=== PATIENT | male | born 1940 | race Caucasian/White ===

== ENCOUNTER 2017-05-14 08:00 | Outpatient (CLI) | payer MEDICARE, OTHER ==
[2017-05-15 12:39] LABS: HEMOGLOBIN A1C 0.47 g/dL
[2017-05-15 12:43] LABS: CHOL/HDL RATIO 3.2 (<5.0); CHOLESTEROL 165 mg/dL; HDL CHOLESTEROL 52 mg/dL; TRIGLYCERIDES 39 mg/dL
[2017-05-15 13:02] LABS: LDL CHOLESTEROL,DIRECT 103 mg/dL
== END 2017-05-14 23:59 | disposition home or self-care (01) ==
LOC: LAB.F 08:00
PROVIDERS: ATTEND Internal Medicine
DX: Z13.220 Encounter for screening for lipoid disorders (principal); R73.9 Hyperglycemia, unspecified
CPT/HCPCS: 36415; 80061; 83036

== ENCOUNTER 2018-09-28 13:26 | Outpatient (CLI) | payer MEDICARE, OTHER ==
[2018-09-28 19:08] LABS: BASOPHILS % (AUTO) 0.6 %; EOSINOPHILS # (AUTO) 0.1 10^3/uL (0.0-0.7); EOSINOPHILS % (AUTO) 1.9 %; HGB - HEMOGLOBIN 14.1 g/dL (14.0-18.0); LYMPHOCYTES # (AUTO) 0.7 10^3/uL (1.5-3.5); LYMPHOCYTES % (AUTO) 12.7 %; MEAN CORPUSCULAR HEMOGLOBIN 31.7 pg (27.0-31.0); MEAN CORPUSCULAR HGB CONC 33.1 g/dL (32.0-36.0); MEAN CORPUSCULAR VOLUME 95.9 fL (80.0-94.0); MONOCYTES # (AUTO) 0.5 10^3/uL (0.0-1.0); MONOCYTES % (AUTO) 8.9 %; NEUTROPHILS % (AUTO) 75.9 %; PLT - PLATELET COUNT 180 10^3/uL (130-450); RED BLOOD COUNT 4.46 10^6/uL (4.70-6.10); RED CELL DISTRIBUTION WIDTH 14.6 % (12.0-15.0); WHITE BLOOD COUNT 5.2 x10^3/uL (4.8-10.8)
== END 2018-09-28 13:27 | disposition home or self-care (01) ==
LOC: LAB.F 13:26
PROVIDERS: ATTEND Internal Medicine
DX: Z96.642 Presence of left artificial hip joint (principal); L03.116 Cellulitis of left lower limb
CPT/HCPCS: 36415; 85025; 85651; 86140

== ENCOUNTER 2018-12-09 21:51 | Outpatient (CLI) | payer MEDICARE, OTHER ==
--- NOTE | 2018-12-09 23:38 | Ultrasound Report ---
Reason: LOWER EXTREMITY EDEMA Procedure Date: 12/09/2018 Accession Number: [id number] / [id number] Procedure: US - Duplex Ext Veins Right CPT Code: FULL RESULT: EXAM: RIGHT LOWER EXTREMITY VENOUS ULTRASOUND EXAM DATE: 12/09/2018 11:10 PM. CLINICAL HISTORY: LOWER EXTREMITY EDEMA. COMPARISON: None. TECHNIQUE: Real-time sonographic vascular imaging was performed by the manager house through the lower extremity utilizing both color-flow and Doppler spectral analysis. Multiple bilingual sales representative static images were saved for review. FINDINGS: Common Femoral Vein (CFV): Normal. CFV-GSV Junction: Normal. Profunda Femoral Vein (PFV): Normal. Femoral Vein (FV) Prox: Normal. Femoral Vein (FV) Mid: Normal. Femoral Vein (FV) Dist: Normal. Popliteal Vein: There is occlusive thrombus. Posterior Tibial Veins: There is occlusive thrombus within the paired posterior tibial veins. Peroneal Veins: Not seen. Other: None. IMPRESSION: Study is positive for deep venous thrombosis within the right popliteal and posterior tibial veins. RADIA The call report notification system was initiated by Dr. Sebas Lopez at 11:36 PM on 12/09/2018. ADDENDUM: 12/09/18 23:51 The above call report findings were discussed with Dr Brito by Dr. Sebas Lopez at 11:51 PM on 12/09/2018.
== END 2018-12-09 21:52 | disposition home or self-care (01) ==
LOC: DI 21:51
PROVIDERS: ATTEND Registered Nurse
DX: I82.431 Acute embolism and thrombosis of right popliteal vein (principal); I82.441 Acute embolism and thrombosis of right tibial vein

== ENCOUNTER 2018-12-09 23:54 | Emergency (ER) | payer MEDICARE, OTHER ==
[2018-12-10 00:42] LABS: CALCIUM 8.8 mg/dL (8.5-10.3)
[2018-12-10 00:44] LABS: INR 1.1 (0.8-1.2); PT - PROTHROMBIN TIME 12.2 secs (9.9-12.6)
--- NOTE | 2018-12-10 00:47 | ED Physician Documentation ---
History of Present Illness - Stated complaint Stated Complaint: BLOOD CLOT IN LEG - Chief complaint Chief Complaint: Ext Problem - History obtained from History obtained from: Patient - History of Present Illness Timing: How many days ago (4-5) Pain level now: 1 Improved by: nothing Worsened by: no exacerbating factors - Additonal information Additional information: c/o 4-5 days of gradual onset, gradually progressive RLE swelling with mild painful discomfort. No h/o similar symptoms, denies trauma. US was ordered by PMD; this was performed tonight and revealed DVT (right popliteal and posterior tibial veins). PMD's office was contacted and on-call provider recommended patient check into ED Review of Systems Constitutional: denies: Fever Cardiac: reports: Reviewed and negative Respiratory: reports: Reviewed and negative Skin: denies: Rash Musculoskeletal: reports: Extremity pain, Extremity swelling PD PAST MEDICAL HISTORY - Past Medical History Past Medical History: No Cardiovascular: None Respiratory: None Endocrine/Autoimmune: None GI: Colon polyps : None HEENT: None Psych: None Musculoskeletal: None Derm: None - Past Surgical History Past Surgical History: Yes Ortho: Hip replacement, Other HEENT: Tonsil/Adenoidectomy - Present Medications Home Medications: Ambulatory Orders Medication Instructions Recorded Confirmed Multivitamin [Multi-Vitamin Daily] 1 tab PO DAILY 07/25/15 12/10/18 Enoxaparin [Lovenox] 90 mg SUBQ Q12H #14 syringe 12/10/18 Warfarin Sodium 5 mg PO DAILY #20 tablet 12/10/18 - Allergies Allergies/Adverse Reactions: Allergies Allergy/AdvReac Type Severity Reaction Status Date / Time No Known Drug Allergies Allergy Verified 12/10/18 00:02 - Social History Does the pt smoke?: No Smoking Status: Never smoker Does the pt drink ETOH?: Yes ETOH Use: Liquor Does the pt have substance abuse?: No - Immunizations Immunizations are current?: Yes PD ED PE NORMAL - Vitals Vital signs reviewed: Yes - General General: Alert and oriented X 3, No acute distress, Well developed/nourished - Cardiac Cardiac: RRR, No murmur - Respiratory Respiratory: No respiratory distress, Clear bilaterally - Derm Derm: Normal color, Warm and dry PD ED PE EXPANDED - Extremities Extremities: Swelling, Pedal edema R (distal to mid thigh (uniform/circumferential distal to the mid thigh)). No: Tenderness, Limited ROM Results - Vitals Vitals: Vital Signs - 24 hr 12/09/18 12/10/18 23:57 01:45 Temperature 37.1 C Heart Rate 100 78 Respiratory 20 18 Rate Blood Pressure 177/95 H 168/87 H O2 Saturation 98 99 Oxygen O2 Source Room air - Labs Labs: Laboratory Tests 12/10/18 12/10/18 00:25 00:25 PT 12.2 INR 1.1 APTT 26.6 Sodium 138 Potassium 3.4 L Chloride 103 Carbon Dioxide 28 Anion Gap 7.0 BUN 17 Creatinine 1.0 Estimated GFR (MDRD) 72 L Glucose 108 H Calcium 8.8 PD MEDICAL DECISION MAKING - ED course Complexity details: reviewed results, considered differential, d/w patient ED course: I discussed results of US and options for treatment with patient. He agrees with anticoagulation and we then reviewed risks/benefits of different anticoagulants (NOAC, warfarin). He opts for warfarin at this time (he had been on warfarin after hip surgery and thus is familiar with this medication). Given warfarin and lovenox in ED with rx for both. Instructed to contact PMD in the morning to arrange for close follow up. He understands he will need blood tests within the next few days to check his INR Departure - Departure Disposition: 01 Home, Self Care Clinical Impression: Deep vein thrombosis Qualifiers: DVT location: lower extremity Affected thrombotic vein of extremity: popliteal Chronicity: acute Laterality: right Qualified Code(s): I82.431 - Acute embolism and thrombosis of right popliteal vein Condition: Good Instructions: ED DVT, Lovenox, Warfarin Follow-Up: Remi Hagen MD [Primary Care Provider] - (Call in the morning to begin follow-up arrangements. You will need blood tests within the next few days to determine the dose of warfarin that is right for you. It takes approximately 2 days for the warfarin to affect these tests, and thus 5 mg is the standard starting dose. The enoxaparin injections will keep your blood thinned out until the warfarin is determined to be at the appropriate dose.) Prescriptions: Enoxaparin [Lovenox] 90 mg SUBQ Q12H #14 syringe Warfarin Sodium 5 mg PO DAILY #20 tablet Discharge Date/Time: 12/10/18 01:55
[2018-12-10 00:51] LABS: PARTIAL THROMBOPLASTIN TIME 26.6 secs (24.9-33.3)
[2018-12-10] MEDS ORDERED: ENOXAPARIN 100 MG/ML SYRINGE SUBQ STA (01:18)
[2018-12-10] MEDS ORDERED: WARFARIN 5 MG TABLET PO STA (01:20)
[2018-12-10 01:55] VITALS: BP 168/87
== END 2018-12-10 01:55 | disposition home or self-care (01) ==
LOC: ED 23:54
DX: I82.431 Acute embolism and thrombosis of right popliteal vein (principal); I82.441 Acute embolism and thrombosis of right tibial vein; Z79.01 Long term (current) use of anticoagulants
CPT/HCPCS: 36415; 80048; 85610; 85730; 93971; 96372; 99283; A9270; J1650

== ENCOUNTER 2018-12-14 09:02 | Outpatient (CLI) | payer MEDICARE, OTHER | END 2018-12-14 09:03 | disposition home or self-care (01) | LOC: LAB.F 09:02 | PROVIDERS: ATTEND Registered Nurse | DX: R60.0 Localized edema (principal) | CPT/HCPCS: 85610 ==

== ENCOUNTER 2018-12-16 12:39 | Outpatient (CLI) | payer MEDICARE, OTHER | END 2018-12-16 12:40 | disposition home or self-care (01) | LOC: LAB.F 12:39 | PROVIDERS: ATTEND Registered Nurse | DX: R60.0 Localized edema (principal) | CPT/HCPCS: 85610 ==

== ENCOUNTER 2018-12-25 08:33 | Outpatient (CLI) | payer MEDICARE, OTHER | END 2018-12-25 08:34 | disposition home or self-care (01) | LOC: LAB.F 08:33 | PROVIDERS: ATTEND Registered Nurse | DX: R60.0 Localized edema (principal) | CPT/HCPCS: 85610 ==

== ENCOUNTER 2018-12-28 08:59 | Outpatient (CLI) | payer MEDICARE, OTHER | END 2018-12-28 09:00 | disposition home or self-care (01) | LOC: LAB.F 08:59 | PROVIDERS: ATTEND Registered Nurse | DX: R60.0 Localized edema (principal) | CPT/HCPCS: 85610 ==

== ENCOUNTER 2019-01-01 10:15 | Outpatient (CLI) | payer MEDICARE, OTHER | END 2019-01-01 10:16 | disposition home or self-care (01) | LOC: LAB.F 10:15 | PROVIDERS: ATTEND Registered Nurse | DX: R60.0 Localized edema (principal) | CPT/HCPCS: 85610 ==

== ENCOUNTER 2019-01-02 00:43 | Outpatient (CLI) | payer MEDICARE, OTHER ==
--- NOTE | 2019-01-02 03:08 | Ultrasound Report ---
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 COMPARISON: DUPLEX EXT VEINS RIGHT 12/09/2018 10:27 PM. TECHNIQUE: Real-time sonographic vascular imaging was performed by the lathe setup operator through the lower extremity utilizing both color-flow and Doppler spectral analysis. Multiple assistance representative static images were saved for review. FINDINGS: Common Femoral Vein (CFV): Normal. CFV-GSV Junction: Normal. Profunda Femoral Vein (PFV): Normal. Femoral Vein (FV) Prox: Normal. Femoral Vein (FV) Mid: Normal. Femoral Vein (FV) Dist: Normal. Popliteal Vein: Thrombus. Posterior Tibial Veins: Thrombus. Peroneal Veins: Not well seen. Contralateral Side CFV: Normal. Other: None. IMPRESSION: 1. Deep venous thrombosis seen in the popliteal vein and posterior tibial veins, similar compared with the prior exam. [facility] ADDENDUM: 01/02/19 14:40 Results discussed with JAVON Cid on 01/02/[address] Roderick Bryant.
== END 2019-01-02 00:44 | disposition home or self-care (01) ==
LOC: DI 00:43
PROVIDERS: ATTEND Registered Nurse
DX: I82.431 Acute embolism and thrombosis of right popliteal vein (principal); I82.441 Acute embolism and thrombosis of right tibial vein; Z79.01 Long term (current) use of anticoagulants

== ENCOUNTER 2019-01-08 09:37 | Outpatient (CLI) | payer MEDICARE, OTHER | END 2019-01-08 09:38 | disposition home or self-care (01) | LOC: LAB.F 09:37 | PROVIDERS: ATTEND Registered Nurse | DX: R60.0 Localized edema (principal) | CPT/HCPCS: 85610 ==

== ENCOUNTER 2019-01-11 08:48 | Outpatient (CLI) | payer MEDICARE, OTHER | END 2019-01-11 08:49 | disposition home or self-care (01) | LOC: LAB.F 08:48 | PROVIDERS: ATTEND Registered Nurse | DX: R60.0 Localized edema (principal) | CPT/HCPCS: 85610 ==

== ENCOUNTER 2019-01-18 10:47 | Outpatient (CLI) | payer MEDICARE, OTHER | END 2019-01-18 10:48 | disposition home or self-care (01) | LOC: LAB.F 10:47 | PROVIDERS: ATTEND Registered Nurse | DX: R60.0 Localized edema (principal) | CPT/HCPCS: 85610 ==

== ENCOUNTER 2019-01-22 12:32 | Outpatient (CLI) | payer MEDICARE, OTHER | END 2019-01-22 12:33 | disposition home or self-care (01) | LOC: LAB.F 12:32 | PROVIDERS: ATTEND Registered Nurse | DX: R60.0 Localized edema (principal) | CPT/HCPCS: 85610 ==

== ENCOUNTER 2019-02-05 11:01 | Outpatient (CLI) | payer MEDICARE, OTHER | END 2019-02-05 11:02 | disposition home or self-care (01) | LOC: LAB.F 11:01 | PROVIDERS: ATTEND Registered Nurse | DX: R60.0 Localized edema (principal) | CPT/HCPCS: 85610 ==

== ENCOUNTER 2019-02-12 10:51 | Outpatient (CLI) | payer MEDICARE, OTHER | END 2019-02-12 10:52 | disposition home or self-care (01) | LOC: LAB.F 10:51 | PROVIDERS: ATTEND Registered Nurse | DX: R60.0 Localized edema (principal) | CPT/HCPCS: 85610 ==

== ENCOUNTER 2019-02-19 09:01 | Outpatient (CLI) | payer MEDICARE, OTHER | END 2019-02-19 09:02 | disposition home or self-care (01) | LOC: LAB.F 09:01 | PROVIDERS: ATTEND Internal Medicine | DX: R60.0 Localized edema (principal) | CPT/HCPCS: 85610 ==

== ENCOUNTER 2019-02-26 08:41 | Outpatient (CLI) | payer MEDICARE, OTHER | END 2019-02-26 08:42 | disposition home or self-care (01) | LOC: LAB.F 08:41 | PROVIDERS: ATTEND Internal Medicine | DX: R60.0 Localized edema (principal) | CPT/HCPCS: 85610 ==

== ENCOUNTER 2019-03-04 07:40 | Outpatient (CLI) | payer MEDICARE, OTHER | END 2019-03-04 07:41 | disposition home or self-care (01) | LOC: LAB.F 07:40 | PROVIDERS: ATTEND Registered Nurse | DX: R60.0 Localized edema (principal) | CPT/HCPCS: 85610 ==

== ENCOUNTER 2020-09-19 03:12 | Outpatient (CLI) | payer MEDICARE, OTHER | END 2020-09-19 03:13 | disposition critical access hospital (66) | LOC: EMS 03:12 | PROVIDERS: ATTEND Surgery | DX: R41.82 Altered mental status, unspecified (principal) | CPT/HCPCS: A0425; A0427 ==

== ENCOUNTER 2020-09-19 03:36 | Observation (INO) | payer MEDICARE, OTHER ==
[2020-09-19 04:16] LABS: BASOPHILS # (AUTO) 0.1 10^3/uL (0.0-0.1); EOSINOPHILS # (AUTO) 0.2 10^3/uL (0.0-0.7); EOSINOPHILS % (AUTO) 3.7 %; HGB - HEMOGLOBIN 12.8 g/dL (14.0-18.0); LYMPHOCYTES # (AUTO) 0.7 10^3/uL (1.5-3.5); MEAN CORPUSCULAR HEMOGLOBIN 30.2 pg (27.0-31.0); MEAN CORPUSCULAR HGB CONC 32.6 g/dL (32.0-36.0); MEAN CORPUSCULAR VOLUME 92.7 fL (80.0-94.0); MEAN PLATELET VOLUME 8.9 fL (7.4-11.4); MONOCYTES # (AUTO) 0.4 10^3/uL (0.0-1.0); MONOCYTES % (AUTO) 6.2 %; NEUTROPHILS # (AUTO) 4.7 10^3/uL (1.5-6.6); NEUTROPHILS % (AUTO) 77.9 %; PLT - PLATELET COUNT 161 10^3/uL (130-450); RED BLOOD COUNT 4.24 10^6/uL (4.70-6.10); RED CELL DISTRIBUTION WIDTH 13.8 % (12.0-15.0)
[2020-09-19 04:31] LABS: ALBUMIN 3.4 g/dL (3.2-5.5); ALBUMIN/GLOBULIN RATIO 1.2 (1.0-2.2); BILIRUBIN,TOTAL 0.6 mg/dL (0.2-1.0); CALCIUM 8.7 mg/dL (8.5-10.3); CREATININE 1.1 mg/dL (0.6-1.2); TOTAL PROTEIN 6.2 g/dL (6.7-8.2)
[2020-09-19] MEDS ORDERED: LACTATED RINGERS 1,000 ML IV STA (04:45)
[2020-09-19] MEDS ORDERED: POTASSIUM CHLORIDE 20 MEQ/15 ML UDC PO STA (04:45)
--- NOTE | 2020-09-19 05:17 | ED Physician Documentation ---
History of Present Illness - Stated complaint Stated Complaint: GLF - Chief complaint Chief Complaint: Neuro - History obtained from History obtained from: Patient, EMS - Additonal information Additional information: 80-year-old man with past medical history of high blood pressure, DVT remotely no longer on anticoagulation presents with syncopal episode this evening witnessed by his significant other. Patient states that he drank 1 to 2 pints of whiskey over the last 24 hours and went to sleep feeling fine then woke up to go to the restroom and syncopized while on the toilet. He had 1 episode of nonbloody nonbilious nausea vomiting. His denied that he hit his head, had incontinence of urine or stool, tongue biting or tremors. EMS was called and he was brought in for evaluation. He denies chest pain palpitation shortness of breath nausea confusion or weakness. Patient is mildly intoxicated at this time. Review of Systems Ten Systems: 10 systems reviewed and negative Constitutional: denies: Fever, Chills Cardiac: denies: Chest pain / pressure, Palpitations Respiratory: denies: Dyspnea, Cough Neurologic: reports: Syncope. denies: Headache, Head injury PD PAST MEDICAL HISTORY - Past Medical History Cardiovascular: Deep vein thrombosis, Murmur Respiratory: None Endocrine/Autoimmune: None GI: Colon polyps : None HEENT: None Psych: None Musculoskeletal: None Derm: None - Past Surgical History Past Surgical History: Yes Ortho: Hip replacement, Other HEENT: Tonsil/Adenoidectomy - Present Medications Home Medications: Ambulatory Orders Medication Instructions Recorded Confirmed Multivitamin [Multi-Vitamin Daily] 1 tab PO DAILY 07/25/15 09/19/20 - Allergies Allergies/Adverse Reactions: Allergies Allergy/AdvReac Type Severity Reaction Status Date / Time No Known Drug Allergies Allergy Verified 09/19/20 03:52 - Social History Does the pt smoke?: No Smoking Status: Never smoker Does the pt drink ETOH?: Yes ETOH Use: Liquor Does the pt have substance abuse?: No - Immunizations Immunizations are current?: Yes PD ED PE NORMAL - Vitals Vital signs reviewed: Yes - General General: Alert and oriented X 3 - HEENT HEENT: Atraumatic, PERRL, EOMI, Moist mucous membranes, Pharynx benign - Neck Neck: No bony TTP - Cardiac Cardiac: RRR, Other (loud systolic murmur auscultated) - Respiratory Respiratory: No respiratory distress, Clear bilaterally - Abdomen Abdomen: Non tender, Non distended - Male Male : Deferred - Rectal Rectal: Deferred - Back Back: No spinal TTP - Derm Derm: Normal color, Warm and dry - Extremities Extremities: No deformity - Neuro Neuro: Alert and oriented X 3, 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 2-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, No motor deficit, No sensory deficit, Normal speech - Psych Psych: Normal mood, Normal affect, Other (patient with mild intoxication) Results - Vitals Vitals: Vital Signs - 24 hr 09/19/20 09/19/20 03:42 05:51 Temperature 36.5 C 36.6 C Heart Rate 80 104 H Respiratory 16 15 Rate Blood Pressure 132/72 H 127/96 H O2 Saturation 98 98 Oxygen O2 Source Room air - Labs Labs: Laboratory Tests 09/19/20 09/19/20 09/19/20 04:09 04:09 04:09 WBC 6.0 RBC 4.24 L Hgb 12.8 L Hct 39.3 L MCV 92.7 MCH 30.2 MCHC 32.6 RDW 13.8 Plt Count 161 MPV 8.9 Neut # (Auto) 4.7 Lymph # (Auto) 0.7 L [place] # (Auto) 0.4 Eos # (Auto) 0.2 Baso # (Auto) 0.1 Absolute Nucleated RBC 0.00 Nucleated RBC % 0.0 Sodium 142 Potassium 3.3 L Chloride 104 Carbon Dioxide 24 Anion Gap 14.0 H BUN 18 Creatinine 1.1 Estimated GFR (MDRD) 65 L Glucose 96 Calcium 8.7 Total Bilirubin 0.6 AST 35 ALT 25 Alkaline Phosphatase 90 Troponin I High Sens 11.9 B-Natriuretic Peptide Total Protein 6.2 L Albumin 3.4 Globulin 2.8 Albumin/Globulin Ratio 1.2 Lipase 64 H Ethyl Alcohol 288.4 09/19/20 05:09 WBC RBC Hgb Hct MCV MCH MCHC RDW Plt Count MPV Neut # (Auto) Lymph # (Auto) [place] # (Auto) Eos # (Auto) Baso # (Auto) Absolute Nucleated RBC Nucleated RBC % Sodium Potassium Chloride Carbon Dioxide Anion Gap BUN Creatinine Estimated GFR (MDRD) Glucose Calcium Total Bilirubin AST ALT Alkaline Phosphatase Troponin I High Sens B-Natriuretic Peptide 35 Total Protein Albumin Globulin Albumin/Globulin Ratio Lipase Ethyl Alcohol PD MEDICAL DECISION MAKING - ED course Complexity details: reviewed results, d/w patient ED course: d/w hospitalist re: heart murmur. patient states he was told he had a heart murmur long ago when he first joined the [employer] but has not been told he has it since. does not remember his last echo but it has been at least a few years. d/w hospitalist re syncopal episode and possible benefit of echo/observation. he will see patient and evaluate. 5:30am - patient is clinically sober. c spine still non-tender. no new complaints. d/w him re: possible need for echo given his syncope/murmur. he would prefer to follow up as an outpatient if possible, stating that he thinks the fainting spell was likely 2/2 alcohol but understands need for f/u echo. 6am - Dr. Cameron saw the patient and he agreed to stay for echo/observation. Departure - Departure Disposition: ED Place in Observation Clinical Impression: Syncope, Heart murmur, Alcohol abuse Condition: Stable
[2020-09-19] MEDS ORDERED: ONDANSETRON 4 MG/2 ML VIAL IVP PRN (05:18)
[2020-09-19] MEDS ORDERED: SODIUM CHLORIDE FLUSH 0.9% 10 ML SYRINGE IVP PRN (05:18)
--- NOTE | 2020-09-19 05:26 | HISTORY & PHYSICAL EXAMINATION ---
Chief Complaint - Chief Complaint Chief Complaint: syncope History of Present Illness - Admitted From Admitted From:: [facility] ED - History Obtained From Records Reviewed: Yes History obtained from: Patient - History of Present Illness HPI Comment/Other: Patient is a 80-year-old male with no active medical problems but past medical history significant for DVT who completed a course of Coumadin. He presented to the ED after a syncopal episode when he went to the bathroom. It was unwitnessed. However he is denies hitting his head. Through the course of the past 24 hours he has drank about 2 pints of alcohol. Upon presentation to the ED his alcohol level is 288. Currently he denies chest pain, dyspnea, abdominal pain, nausea, vomiting, fever, chills or dizziness. He denies any previous occurrence of syncope. He has been told as recently as 1 year ago he has a heart murmur. He denies any other cardiac history. He was presented for admission for further work-up which would include a 2D echocardiogram. 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 He is independent of activities of daily living. 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 He is a . He denies tobacco use. He drinks significantly. Today he drank 1 to 2 pints of alcohol in a 24-hour period. He does not use recreational substances. - POLST Patient has POLST: No POLST Status: Full Code Meds/Allgy - Home Medications Home Medications: Ambulatory Orders Medication Instructions Recorded Confirmed Multivitamin [Multi-Vitamin Daily] 1 tab PO DAILY 07/25/15 09/19/20 - Allergies Allergies/Adverse Reactions: Allergies Allergy/AdvReac Type Severity Reaction Status Date / Time No Known Drug Allergies Allergy Verified 09/19/20 03:52 Review of Systems - Constitutional Constitutional: denies: Fatigue, Fever, Chills, Weakness - Eyes Eyes: denies: Pain, Dipolpia - Ears, Nose & Throat Ears, Nose & Throat: denies: Ear pain, Vertigo - Cardiovascular Cariovascular: reports: Syncope. denies: Irregular heart rate, Palpitations, Chest pain, Edema - Respiratory Respiratory: denies: Cough, Sputum production, Wheezing, SOB at rest, SOB with exertion - Gastrointestinal Gastrointestinal: denies: Abdominal pain, Abdominal distention, Constipation, Nausea, Vomiting - Genitourinary Genitourinary: denies: Dysuria, Frequency, Urgency, Hematuria, Incontinence - Musculoskeletal Musculoskeletal: denies: Muscle pain, Back pain, Muscle aches - Integumentary Integumentary: denies: Rash, Pruritis, Lesions - Neurological Neurological: reports: Dizziness. denies: General weakness, Focal weakness, Headache - Psychiatric Psychiatric: denies: Depression, Anxiety - Endocrine Endocrine: denies: Polyuria, Polydypsia - Hematologic/Lymphatic Hematologic/Lymphatic: denies: Anemia, Bruising, Petechiae Prior Level of Functionality: He is independent of activities of daily living. Exam - Vital Signs Vital Signs: Vital Signs x48h Temp Pulse Resp BP Pulse Ox 09/19/20 03:42 36.5 C 80 16 132/72 H 98 - Physical Exam General Appearance: positive: No acute distress, Alert Eyes Bilateral: positive: PERRL, EOMI ENT: positive: No signs of dehydration Neck: positive: No JVD, Trachea midline Cardiovascular: positive: Regular rate & rhythm, Tachycardia, Systolic murmur (2/6 systolic murmur). negative: Irregularly irregular Abdomen: positive: Non-tender, No organomegaly, Nml bowel sounds, No distention. negative: Guarding, Rebound Back: positive: Nml inspection Skin: positive: Color nml, No rash, Warm, Dry Extremities: positive: Non-tender, Full ROM, Nml appearance, No pedal edema Neurologic/Psychiatric: positive: Oriented x3, Mood/affect nml Conclusion/Plan - Problem List (1) Syncope Conclusion/Plan: Likely due to alcohol intoxication. Patient's blood alcohol level was 288. However patient has a history of a murmurEchocardiogram in records. We will trend patient's troponin times tomorrow. 2D echo with bubble study has been ordered. Patient would be observed on telemetry. IV hydration with normal saline at 100 mils per hour. No (2) Alcohol abuse Conclusion/Plan: Patient's blood alcohol level is 288. Patient is currently admitted under observation status. Anticipating discharge tomorrow. If there is any change in patient's clinical status which could warrant a longer hospital stay, please consider ordering CIWA protocol. - Lab Results Fish Bones: 09/19/20 04:09 09/19/20 04:09 Core Measures - Anticipated LOS I expect patient to be DC'd or transferred within 96 hours.: Yes - DVT/VTE - Prophylaxis VTE/DVT Device ordered at admit?: Yes VTE/DVT Prophylaxis med ordered at admit?: Yes
[2020-09-19 05:59] LABS: MUDS CUTOFF CONCENTRATIONS CUTOFF CONC BELOW:
[2020-09-19] MEDS ORDERED: SODIUM CHLORIDE 0.9% 1,000 ML IV SCH ×2 (06:00→06:54)
[2020-09-19 06:13] LABS: AMPHETAMINE SCREEN,URINE NEGATIVE (NEGATIVE); BENZODIAZEPINES SCREEN, URINE NEGATIVE (NEGATIVE); COCAINE SCREEN URINE NEGATIVE (NEGATIVE); METHADONE SCREEN, URINE NEGATIVE (NEGATIVE); METHAMPHETAMINES SCREEN, URINE NEGATIVE (NEGATIVE); OPIATE SCREEN, URINE NEGATIVE (NEGATIVE); OXYCODONE SCREEN, URINE NEGATIVE (NEGATIVE); PROPOXYPHENE SCREEN, URINE NEGATIVE (NEGATIVE); TRICYCLIC ANTIDEPRESSANT,URINE NEGATIVE (NEGATIVE)
--- NOTE | 2020-09-19 07:17 | CT Report ---
PROCEDURE: HEAD WO INDICATIONS: syncope TECHNIQUE: Noncontrast 4.5 mm thick angled axial sections acquired from the foramen magnum to the vertex. For r adiation dose reduction, the following was used: automated exposure control, adjustment of mA and/or kV according to patient size. COMPARISON: None. FINDINGS: Image quality: Excellent. CSF spaces: Basal cisterns are patent. No extra-axial fluid collections. Ventricles are normal in size and shape. Brain: No midline shift. No intracranial masses or hemorrhage. Boles-white matter interface is norm al. Skull and face: Calvarium and visualized facial bones are intact, without suspicious lesions. Sinuses: Small mucous retention cyst versus polyp noted in the right sphenoid sinus. The Mastoids are clear. IMPRESSION: No acute intracranial disease process. Reviewed by: Palmira Thakur MD, PhD on 09/19/2020 7:15 AM PST Approved by: Palmria Thakur MD, PhD on 09/19/2020 7:15 AM PST Station ID: [id number]
[2020-09-19 07:34] LABS: C. PNEUMONIAE- RESP PCR PANEL NOT DETECTED
--- NOTE | 2020-09-19 08:25 | XRAY Report ---
PROCEDURE: Chest 1 View X-Ray INDICATIONS: Chest Pain TECHNIQUE: One view of the chest was acquired. COMPARISON: None FINDINGS: Surgical changes and devices: None. Lungs and pleura: No pleural effusions or pneumothorax. Lungs are clear. Mediastinum: Mediastinal contours appear normal. Heart size is normal. Bones and chest wall: No suspicious bony lesions. Overlying soft tissues appear unremarkable. IMPRESSION: No acute cardiopulmonary disease process. Reviewed by: Palmira Thakur MD, PhD on 09/19/2020 8:23 AM [facility] Approved by: Palmira Thakur MD, PhD on 09/19/2020 8:23 AM [facility] Station ID: [id number]
[2020-09-19] MEDS ORDERED: ENOXAPARIN 40 MG/0.4 ML SYRINGE SUBQ SCH (09:00)
[2020-09-19] MEDS: SODIUM CHLORIDE FLUSH 0.9% 10 ML SYRINGE IVP SCH ×2 (09:05→18:43)
[2020-09-19] MEDS ORDERED: THIAMINE 100 MG TABLET PO SCH (10:00)
[2020-09-19] MEDS ORDERED: PRENATAL VITAMIN TABLET PO SCH (10:00)
[2020-09-19] MEDS ORDERED: LORazepam 2 MG/ML VIAL IVP PRN (11:17)
--- NOTE | 2020-09-19 11:20 | XRAY Report ---
PROCEDURE: Chest 1 View X-Ray INDICATIONS: SOB TECHNIQUE: One view of the chest was acquired. COMPARISON: CT chest 09/19/2020 at 4:02 AM. FINDINGS: Patient is prominently rotated. Surgical changes and devices: None. Lungs and pleura: No pleural effusions or pneumothorax. Lungs are clear. Mediastinum: Mediastinal contours appear normal. Heart size is normal. Bones and chest wall: No suspicious bony lesions. Overlying soft tissues appear unremarkable. IMPRESSION: Patient is prominently rotated. However, no acute pulmonary process identified. As clinically indicat ed, CT chest may be obtained if concern persists. Reviewed by: Caitlyn Henao MD on 09/19/2020 11:19 AM PST Approved by: Caitlyn Henao MD on 09/19/2020 11:19 AM PST Station ID: [id number]
[2020-09-19] MEDS ORDERED: PNEUMOCOCCAL 13-VALENT CONJ 0.5 ML SYRINGE IM ONE (12:00)
--- NOTE | 2020-09-19 12:12 | PHARMACY PROGRESS NOTE ---
- Best Possible Medication History Admit Date and Time: 09/19/20 0518 Processed by: Pharmacy Medication History completed: Yes Patient Interview: Completed Secondary Source(s): Physician records, Pharmacy records, Insurance records (PATIENT INTERVIEWED BY [employer]. PATIENT ABLE TO CONFIRM HOME MEDICATIONS.) As the person ultimately responsible for medication therapy, providers are able to order a medication from an existing home medication list in [facility] via the "Reconcile Routine" prior to Confirmation of that medication by manager client support. Such practice is discouraged except when the physician, in their clinical judgment, deems that a medical need exists for a medication without regard to previous use.
[2020-09-19 12:44] LABS: CALCIUM 8.5 mg/dL (8.5-10.3); MAGNESIUM 1.7 mg/dL (1.7-2.8)
[2020-09-19] MEDS ORDERED: METOPROLOL TARTRATE 25 MG TABLET PO SCH (14:00)
[2020-09-19] MEDS ORDERED: lisinopriL 5 MG TABLET PO SCH (15:09)
--- NOTE | 2020-09-19 18:31 | Discharge Plan ---
Discharge Plan Problem Reviewed?: Yes Disposition: Home, Self Care Condition: Stable Prescriptions: Metoprolol Tartrate [Lopressor] 25 mg PO BID #60 tablet Pnv No.95/Ferrous Fum/Folic AC [ Tablet] 1 each PO DAILY #30 tablet Thiamine [Vitamin B-1] 100 mg PO DAILY #30 tablet lisinopriL [Zestril] 5 mg PO DAILY #30 tablet Diet: Regular Activity Restrictions: Activity as Tolerated Shower Restrictions: No (fall precaution) Instruction Topics: Syncope, Alcoholism, Metoprolol tablets, Lisinopril tablets, Inhibitors MED, Heart Failure Meds Control, Heart Failure Health Concerns: systolic heart failure, syncope, alcoholism Plan of Treatment: your heart EF has slightly reduced and your had tachycardia, new medication Metoprolol and Lisinopril are prescribed for you, you may followup with your PCP and referral to bundle sorter as out-pt. Your medications are already sent to your pharmacy store [facility]. You really want to go home today. advise you quit alcohol, and you agree. You may keep hydration, slowly stand up and walk for prevention of fall. Care Goals: stabilization and improvement of your medical conditions Assessment: discussed the care plan with you, you understood. Additional Instructions or Follow Up instructions: You may followup with your PCP in one week, and followup with bundle sorter as out-pt. Should your symptoms return or worsen, you may present ER or call 911 for help. Follow-Up Care: [facility] No Smoking: If you smoke, Please STOP! Call for help.
--- NOTE | 2020-09-19 18:41 | DISCHARGE SUMMARY ---
Discharge Summary Admit Date: 09/19/20 Discharge Date: 09/19/20 Discharging Provider: Blu Sanders Primary Care Provider: Remi Cash Condition at Discharge: Stable Discharge Disposition: 01 Home, Self Care Discharge Facility Name: home - DIAGNOSES Discharge Diagnoses with Status of Each Condition: (1) Syncope pt agree it is likely due to alcohol intoxication. Patient has a alcohol level 288 in the Admission. Patient's echo show EF 50%, without aortic stenosis. Troponin is negative, EKG show sinus rhythm and sinus tachycardia.Advised patient quitted alcohol, keep hydration, patient is prescribed a new medication metoprolol and lisinopril. Patient tolerated the medication well, patient really want to go home, patient is discharged to home with hemodynamically stable condition, Follow-up with vacuum drum drier operator as outpatient (2) Alcohol abuse Patient's blood alcohol level is 288. Patient has no obviously alcohol withdrawal in hospital, patient is prescribed and vitamin B1. Patient is encouraged to quit alcohol, patient stated he will quit alcohol (3)systolic heart failure, [place] stage I Patient's Echo show EF at 50 %, But the patient has no issue to walk. Patient has slightly elevated blood pressure and sinus tachycardia, Patient is prescribed metoprolol and lisinopril, patient tolerated new medication well in the hospital. advise pt Follow-up with vacuum drum drier operator as outpatient (4)HTN Patient Has slightly elevated blood pressure, patient is prescribed metoprolol and lisinopril (5)Sinus tachycardia Patient Has sinus tachycardia in hospital, patient is prescribed metoprolol, patient also has systolic heart failure with EF 50%. - HPI History of Present Illness: refer from Dr. Cameron's HPI on 09/19/2020 Patient is a 80-year-old male with no active medical problems but past medical history significant for DVT who completed a course of Coumadin. He presented to the ED after a syncopal episode when he went to the bathroom. It was unwitnessed. However he is denies hitting his head. Through the course of the past 24 hours he has drank about 2 pints of alcohol. Upon presentation to the ED his alcohol level is 288. Currently he denies chest pain, dyspnea, abdominal pain, nausea, vomiting, fever, chills or dizziness. He denies any previous occurrence of syncope. He has been told as recently as 1 year ago he has a heart murmur. He denies any other cardiac history. He was presented for admission for further work-up which would include a 2D echocardiogram. - HOSPITAL COURSE Hospital Course: Patient was admitted for syncope. patient report he drink two pints of alcohol and his alcohol level was 288 at the admission. Patient believe his syncope was caused by drinking too much alcohol. Patient has sinus rhythm and sinus tachycardia in EKG, no ST elevation or depression, and no other arrhythmias. No significant T-wave inversions, Troponin was negative, echo show patient has EF at 50% without aortic stenosis. Patient also had slightly elevated blood pressure. Patient is prescripted metoprolol and lisinopril. Patient really wanted to go home today. Patient was encouraged to quit her alcohol, follow-up vacuum drum drier operator as outpatient. - ALLERGIES Allergies/Adverse Reactions: Allergies Allergy/AdvReac Type Severity Reaction Status Date / Time No Known Drug Allergies Allergy Verified 09/19/20 03:52 - MEDICATIONS Home Medications: Ambulatory Orders Medication Instructions Recorded Confirmed Multivitamin [Multi-Vitamin Daily] 1 tab PO DAILY 07/25/15 09/19/20 Ibuprofen [Motrin] 400 mg PO PRN PRN 09/19/20 09/19/20 Metoprolol Tartrate [Lopressor] 25 mg PO BID #60 tablet 09/19/20 Thiamine [Vitamin B-1] 100 mg PO DAILY #30 tablet 09/19/20 lisinopriL [Zestril] 5 mg PO DAILY #30 tablet 09/19/20 - PHYSICAL EXAM AT DISCHARGE General Appearance: positive: No acute distress, Alert. negative: Lethargic Eyes Bilateral: positive: Normal inspection, PERRL, No lid inflammation ENT: positive: ENT inspection nml, No signs of dehydration. negative: Purulent nasal drainage Neck: positive: Nml inspection, Thyroid nml, Trachea midline. negative: Thyromegaly, Tracheal deviation Respiratory: positive: Chest non-tender, No respiratory distress, Breath sounds nml. negative: Wheezes, Rales, Rhonchi Cardiovascular: positive: Regular rate & rhythm, Systolic murmur. negative: Tachycardia, Bradycardia, Diastolic murmur Peripheral Pulses: positive: 2+ Abdomen: positive: Non-tender, Nml bowel sounds, No distention. negative: Tenderness, Guarding, Rebound Back: positive: Nml inspection. negative: CVA tenderness (R), CVA tenderness (L) Skin: positive: Color nml, Warm, Dry. negative: Cyanosis, Diaphoresis, Pallor Extremities: positive: Non-tender, Full ROM, Nml appearance. negative: Calf tenderness Neurologic/Psychiatric: positive: Oriented x3, Motor nml, Sensation nml, Mood/affect nml. negative: Weakness, Sensory loss, Facial droop, Slurred/abnml speech, Depressed mood/affect - LABS Result Diagrams: 09/19/20 04:09 09/19/20 12:21 - FOLLOW UP Follow Up: your heart EF has slightly reduced and your had tachycardia, new medication Metoprolol and Lisinopril are prescribed for you, you may followup with your PCP and referral to vacuum drum drier operator as out-pt. Your medications are already sent to your pharmacy store [facility]. You really want to go home today. advise you quit alcohol, and you agree. You may keep hydration, slowly stand up and walk for prevention of fall. You may followup with your PCP in one week, and followup with vacuum drum drier operator as out-pt. Should your symptoms return or worsen, you may present ER or call 911 for help. - TIME SPENT Time Spent in Discharge (Minutes): 30
[2020-09-19 19:07] VITALS: BP 166/85
== END 2020-09-19 19:40 | disposition home or self-care (01) ==
LOC: EDUNIT# → ED 03:36 → MS2 05:18
PROVIDERS: ADMIT Internal Medicine; ATTEND Nurse Practitioner Gerontology
DX: R55 Syncope and collapse (principal); F10.10 Alcohol abuse, uncomplicated; Y90.8 Blood alcohol level of 240 mg/100 ml or more; I11.0 Hypertensive heart disease with heart failure; I50.20 Unspecified systolic (congestive) heart failure; R00.0 Tachycardia, unspecified; Z86.718 Personal history of other venous thrombosis and embolism
CPT/HCPCS: 36415; 70450; 71045; 80048; 80053; 80306; 83690; 83735; 83880; 84484; 85025; 87631; 90471; 90670; 93005; 93306; 96360; 96372; 99284; 99285; A9270; G0378; J1650; J7120; 0202U; 80320

== ENCOUNTER 2021-07-12 10:48 | Outpatient (CLI) | payer MEDICARE, OTHER ==
[2021-07-12 14:43] LABS: BASOPHILS % (AUTO) 0.8 %; EOSINOPHILS # (AUTO) 0.3 10^3/uL (0.0-0.7); EOSINOPHILS % (AUTO) 4.7 %; HCT - HEMATOCRIT 38.9 % (42.0-52.0); HGB - HEMOGLOBIN 12.6 g/dL (14.0-18.0); LYMPHOCYTES # (AUTO) 0.9 10^3/uL (1.5-3.5); LYMPHOCYTES % (AUTO) 17.8 %; MEAN CORPUSCULAR HEMOGLOBIN 30.3 pg (27.0-31.0); MEAN CORPUSCULAR HGB CONC 32.4 g/dL (32.0-36.0); MEAN CORPUSCULAR VOLUME 93.5 fL (80.0-94.0); MEAN PLATELET VOLUME 10.1 fL (7.4-11.4); MONOCYTES # (AUTO) 0.5 10^3/uL (0.0-1.0); MONOCYTES % (AUTO) 9.9 %; NEUTROPHILS # (AUTO) 3.5 10^3/uL (1.5-6.6); NEUTROPHILS % (AUTO) 66.4 %; PLT - PLATELET COUNT 150 10^3/uL (130-450); RED BLOOD COUNT 4.16 10^6/uL (4.70-6.10); RED CELL DISTRIBUTION WIDTH 12.5 % (12.0-15.0); WHITE BLOOD COUNT 5.3 x10^3/uL (4.8-10.8)
[2021-07-12 15:21] LABS: ALBUMIN 3.5 g/dL (3.2-5.5); ALBUMIN/GLOBULIN RATIO 1.5 (1.0-2.2); ALKALINE PHOSPHATASE 79 IU/L (42-121); ALT ALANINE AMINOTRANSFERASE 15 IU/L (10-60); AST ASPARTATE AMINOTRANSFERASE 15 IU/L (10-42); BILIRUBIN,TOTAL 0.9 mg/dL (0.2-1.0); BUN - BLOOD UREA NITROGEN 16 mg/dL (6-20); CALCIUM 8.8 mg/dL (8.5-10.3); CARBON DIOXIDE - CO2 30 mmol/L (21-32); CHLORIDE 106 mmol/L (101-111); CHOL/HDL RATIO 3.6 (<5.0); CHOLESTEROL 181 mg/dL; CREATININE 1.1 mg/dL (0.6-1.2); GFR - MDRD 65 (>89); GLUCOSE 100 mg/dL (70-100); HDL CHOLESTEROL 50 mg/dL; LDL CHOLESTEROL,CALCULATED 120 mg/dL; LDL/HDL RATIO 2.4 (<3.6); POTASSIUM 4.1 mmol/L (3.5-5.0); SODIUM 141 mmol/L (135-145); TOTAL PROTEIN 5.9 g/dL (6.7-8.2); TRIGLYCERIDES 56 mg/dL; VLDL CHOLESTEROL 11 mg/dL
== END 2021-07-12 10:49 | disposition home or self-care (01) ==
LOC: LAB.S 10:48
PROVIDERS: ATTEND Internal Medicine
DX: I10 Essential (primary) hypertension (principal); E78.5 Hyperlipidemia, unspecified; Z12.5 Encounter for screening for malignant neoplasm of prostate
CPT/HCPCS: 36415; 80053; 80061; 85025; G0103; 83721; 84153

== ENCOUNTER 2021-07-19 12:08 | Outpatient (CLI) | payer MEDICARE, OTHER ==
[2021-07-19 12:32] LABS: FECAL OCCULT BLOOD (FIT) POSITIVE (NEGATIVE)
== END 2021-07-19 12:09 | disposition home or self-care (01) ==
LOC: LAB 12:08
PROVIDERS: ATTEND Internal Medicine
DX: I10 Essential (primary) hypertension (principal); Z12.11 Encounter for screening for malignant neoplasm of colon; D64.9 Anemia, unspecified
CPT/HCPCS: 82274

== ENCOUNTER 2021-11-16 12:00 | Day surgery (SDC) | payer MEDICARE, OTHER ==
[2021-11-16] MEDS ORDERED: LACTATED RINGERS 1,000 ML IV ONE (12:07)
[2021-11-16] MEDS ORDERED: PROPOFOL 500 MG/50 ML 500 MG/50 ML VIAL ONE (12:30)
--- NOTE | 2021-11-16 12:55 | ANESTHESIA ---
Pre-Anesthesia VS, & Labs - Diagnosis screening - Procedure colonoscopy Vital Signs: Temp Pulse Resp BP Pulse Ox 36.2 C L 62 18 148/89 H 98 11/16/21 12:07 11/16/21 12:07 11/16/21 12:07 11/16/21 12:07 11/16/21 12:07 Height: 5 ft 9 in Weight (kg): 92 kg Body Mass Index: 29.9 BMI Classification: Overweight - NPO >8 hours Home Medications and Allergies Home Medications: Ambulatory Orders Losartan Potassium 1 tab PO DAILY 11/15/21 Multivitamin [Multi-Vitamin Daily] 1 tab PO DAILY 07/25/15 Ibuprofen [Motrin] 400 mg PO PRN PRN 09/19/20 Losartan Potassium 1 tab PO DAILY 11/15/21 Allergies/Adverse Reactions: Allergies Allergy/AdvReac Type Severity Reaction Status Date / Time No Known Drug Allergies Allergy Verified 11/15/21 14:05 Anes History & Medical History - Anesthetic History Anesthesia Complications: reports: No previous complications - Medical History Cardiovascular: reports: Hypertension, Deep vein thrombosis, Murmur, Valve disorder (aortic stenosis) Pulmonary: reports: None Gastrointestinal: reports: Colon polyps Urinary: reports: None Neuro: reports: None Musculoskeletal: reports: None Endocrine/Autoimmune: reports: None Blood Disorders: reports: None Skin: reports: None Smoking Status: Never smoker - Surgical History General: reports: Colonoscopy Eyes Ears Nose Throat (EENT): reports: Cataracts, Tonsil/Adenoidectomy Orthopedic: reports: Hip replacement, Other Exam General: Alert, Oriented x3 Dental: WNL Mouth Opening: Greater than 4 Fingerbreadths Respiratory: Lungs clear Cardiovascular: Regular rate, Normal S1, Normal S2, Other (4/6 murmur) Plan Anesthesia Type: Total IV Consent for Procedure(s) Verified and Reviewed: Yes Code Status: Attempt Resuscitation ASA classification: 3-Severe systemic disease Is this case an emergency?: No
[2021-11-16] MEDS ORDERED: LACTATED RINGERS 100 ML IV ONE (14:04)
[2021-11-16 14:44] VITALS: BP 124/77
--- NOTE | 2021-11-16 14:48 | ANESTHESIA POST OP EVALUATION ---
Anesthesia Post Eval - Post Anesthesia Eval Vitals: Last Vital Signs Temp 36.2 C L 11/16/21 14:43 Pulse 60 11/16/21 14:43 Resp 14 11/16/21 14:43 BP 124/77 11/16/21 14:43 Pulse Ox 99 11/16/21 14:43 CV Function Including HR & BP: Stable Pain Control: Satisfactory Nausea & Vomiting: Negative Mental Status: Baseline Respiratory Status: Airway Patent Hydration Status: Satisfactory Anesthesia Complications: None
== END 2021-11-16 12:01 | disposition home or self-care (01) ==
LOC: SDS 12:00
PROVIDERS: ATTEND Surgery
PROC: 0DBP8ZZ Excision of Rectum, Via Natural or Artificial Opening Endoscopic (ICD-10-PCS; principal; 2021-11-16 13:00)
DX: Z12.11 Encounter for screening for malignant neoplasm of colon (principal); D01.2 Carcinoma in situ of rectum; K57.30 Diverticulosis of large intestine without perforation or abscess without bleeding; I35.1 Nonrheumatic aortic (valve) insufficiency
CPT/HCPCS: 45385; J7120

== ENCOUNTER 2021-12-31 13:15 | Outpatient (CLI) | payer MEDICARE, OTHER ==
[2021-12-31 13:33] LABS: BASOPHILS # (AUTO) 0.1 10^3/uL (0.0-0.1); EOSINOPHILS # (AUTO) 0.2 10^3/uL (0.0-0.7); EOSINOPHILS % (AUTO) 4.4 %; HCT - HEMATOCRIT 38.5 % (42.0-52.0); HGB - HEMOGLOBIN 12.6 g/dL (14.0-18.0); LYMPHOCYTES # (AUTO) 0.9 10^3/uL (1.5-3.5); LYMPHOCYTES % (AUTO) 17.3 %; MEAN CORPUSCULAR HEMOGLOBIN 29.9 pg (27.0-31.0); MEAN CORPUSCULAR HGB CONC 32.7 g/dL (32.0-36.0); MEAN CORPUSCULAR VOLUME 91.4 fL (80.0-94.0); MEAN PLATELET VOLUME 9.2 fL (7.4-11.4); MONOCYTES # (AUTO) 0.6 10^3/uL (0.0-1.0); MONOCYTES % (AUTO) 12.4 %; NEUTROPHILS # (AUTO) 3.3 10^3/uL (1.5-6.6); NEUTROPHILS % (AUTO) 64.7 %; PLT - PLATELET COUNT 147 10^3/uL (130-450); RED BLOOD COUNT 4.21 10^6/uL (4.70-6.10); RED CELL DISTRIBUTION WIDTH 12.6 % (12.0-15.0)
[2021-12-31 13:43] LABS: ALBUMIN 3.6 g/dL (3.2-5.5); ALBUMIN/GLOBULIN RATIO 1.5 (1.0-2.2); BILIRUBIN,TOTAL 0.9 mg/dL (0.2-1.0); CALCIUM 8.9 mg/dL (8.5-10.3); CREATININE 1.3 mg/dL (0.6-1.2); POTASSIUM 4.8 mmol/L (3.5-5.0)
== END 2021-12-31 13:16 | disposition home or self-care (01) ==
LOC: LAB 13:15
PROVIDERS: ATTEND Internal Medicine
DX: D64.9 Anemia, unspecified (principal); R97.20 Elevated prostate specific antigen [PSA]
CPT/HCPCS: 36415; 80053; 82728; 84153; 85025

== ENCOUNTER 2022-08-07 09:12 | Outpatient (CLI) | payer MEDICARE, OTHER | END 2022-08-07 09:13 | disposition home or self-care (01) | LOC: DI 09:12 | PROVIDERS: ATTEND Nurse Practitioner Family | DX: I71.20 Thoracic aortic aneurysm, without rupture, unspecified (principal); I08.0 Rheumatic disorders of both mitral and aortic valves | CPT/HCPCS: 93306 ==